=== PATIENT | female | born 1985 | race Caucasian/White ===

== ENCOUNTER 2024-03-01 19:00 | Emergency (ER) | payer OTHER, SELFPAY ==
[2024-03-01 19:00] VITALS: BMI 26.4
[2024-03-01 19:01] VITALS: BP 130/88
[2024-03-01 19:23] LABS: % Basophils 0.5 % (0-2); % Eosinophils 0.2 % (0-6); % Immature Granulocytes 0.3 % (0-0.5); % Lymphocytes 23.4 % (20.5-51.1); % Neutrophils 68.6 % (42.2-75.2); Absolute Lymphocytes 1.5 10^3/uL (1.2-3.4); Absolute Monocytes 0.5 10^3/uL (0.1-0.6); Absolute Neutrophils 4.4 10^3/uL (1.4-6.5); Hematocrit 38.1 % (37.0-47.0); Hemoglobin 12.9 g/dL (12.0-16.0); Mean Corp Hgb Conc. 33.9 g/dL (33.0-37.0); Mean Corpuscular Hgb 30.9 pg (27.0-31.0); Mean Corpuscular Volume 91.1 fL (81.0-99.0); Mean Platelet Volume 9.1 fL (7.4-10.4); Nucleated Red Blood Cells % 0 %; Platelet Count 184 10^3/uL (130-400); Red Blood Cell Count 4.18 10^6/uL (4.20-5.40); Red Cell Dist. Width 11.9 % (11.5-14.5); White Blood Cell Count 6.4 10^3/uL (4.8-10.8)
[2024-03-01 19:34] LABS: Lactic Acid 1.2 mmol/L (0.7-2.0)
[2024-03-01 19:46] LABS: ALT (SGPT) 18 U/L (0-35); AST (SGOT) 23 U/L (14-36); Alkaline Phosphatase 56 U/L (38-126); Blood Urea Nitrogen 8 mg/dl (7-17); Calcium 9.2 mg/dl (8.4-10.2); Carbon Dioxide 27 mmol/L (22-30); Chloride 98 mmol/L (98-107); Glucose 129 mg/dl (70-99); Potassium 3.7 mmol/L (3.5-5.1); Sodium 137 mmol/L (135-145); Total Bilirubin 0.6 mg/dl (0.2-1.3); Total Protein 7.3 g/dl (6.3-8.2); eGFR > 60.00
--- NOTE | 2024-03-01 19:50 | ED.GENMED ---
History of Present Illness
General
Chief Complaint: Fever
Source: patient
Exam Limitations: none
Time Seen by Provider: 03/01/24 19:30
Nursing documentation reviewed up to this point in time: agreed with
Travel History
Have you had any contact with someone who has COVID-19?: No
Do you have any symptoms of coronavirus? Fever > 100 degrees, chills, cough, shortness of breath, sore throat, loss of taste or smell, muscle aches, or headache?: No
History of Present Illness
History of Present Illness:
38-year-old female with no reported chronic medical issues presents to the emergency room for persistent fevers as well as redness of the right foot. Patient reports that she started feeling unwell Monday she says she has some aching back pain and
over the past 4 days has had fever with Tmax 102 �F. She says that she has been taking Tylenol every 6 hours to control this. She says that she had a bug bite last week and she noticed it was very itchy this week and that over the past day or 2 it
has become red and painful. She says she has also had associated headaches like a band around her head. She denies any nausea, vomiting, diarrhea. Denies any chest pain, shortness of breath. No cough, congestion, sore throat. Denies any
dysuria, hematuria, change in frequency. Denies any vaginal discharge. She says that she was seen in urgent care 2 days ago and was tested for flu and COVID and these were negative. Given the persistence of her symptoms she came to the emergency
room to be assessed.
Review of Systems
Review of Systems
All Other Systems: ROS reviewed and negative except as documented in HPI and ROS
Constitutional: Reports fever, fatigue and chills
EENT: Denies sore throat or runny nose
Respiratory: Denies cough or trouble breathing
Cardiac: Denies chest pain or palpitations
ABD/GI: Denies abdominal pain, nausea, vomiting or diarrhea
: Denies dysuria, frequency, flank pain, bleeding or discharge
Musculoskeletal: Reports muscle pain (Myalgias); Denies neck pain or back pain
Skin: Reports other (Redness dorsum right foot)
Neurological: Reports headache; Denies weakness or numbness
Phy Exam
Physical Exam
Physical Exam:
General: Awake, alert, oriented x3; no acute distress
Head: Normocephalic, atraumatic
Eyes: Conjunctiva normal, EOMI
Ears: TMs clear bilaterally
Throat: Airway intact, handling secretions, no tonsillar erythema or exudate
Neck: Trachea midline, supple without meningismus
Lungs: Clear to auscultation bilaterally, no wheezing, rales, rhonchi
Heart: Regular rate and rhythm, no murmurs, gallops, or rubs
Abd: Soft, non distended, nontender
Neuro: No gross deficits
Skin: Patient has area of erythema on the dorsum of the right foot approximately 3 cm diameter at the base of the third and fourth toe that extends towards the plantar surface
Extremities: Redness on the dorsum of the right foot as above; good strong pulses in all extremities and no edema
Scores
Heart Failure Risk
Heart Failure Risk Score: Not Applicable
Heart Score for Chest Pain Patients
STEMI patient?: Not applicable
Withdrawal Assessment of Alcohol
Withdrawal Assessment Completed?: Not applicable
Course
Orders/Labs/Results
Orders:
Orders
03/01/24 19:06
Electrocardiogram (*1) Urgent
Reason for Study: Other
Other Reason for Exam: Possible Sepsis
Cardiac Monitoring- Treatment ONCE
EKG- Treatment ONCE
IV Insert/Care/Rem.- Treatment PRN
O2 Therapy [RESP] Urgent
Titrate/Wean O2 to maintain O2 sat greater than (%): 93
Special Instructions: TO MAINTAIN CONTINUOUS O2 SATS > OR = 93%
Pulse Ox/cont/shift [RESP] Urgent
Quantity: 1
Special Instructions: CONTINUOUS
03/01/24 19:10
Complete Blood Count/With Diff Urgent
Comprehensive Metabolic Panel Urgent
Lactic Acid Q4H
Comment: ON ICE, CANCEL 2ND ORDER IF FIRST LACTIC ACID LEVEL <2
03/01/24 19:15
Blood Culture Q30M
SARAH Source: Blood/Venous
Specimen Description:
Comment: FROM 2 SEPARATE SITES
03/01/24 19:45
Blood Culture Q30M
SARAH Source: Blood/Venous
Specimen Description:
Comment: FROM 2 SEPARATE SITES
03/01/24 19:54
Test Result ONCE
03/01/24 20:06
HCG, Urine Qualitative Screen Urgent
Date Specimen was Collected: 03/01/24
Time Specimen was Collected: 20:02
Urinalysis Reflex To Culture Urgent
Date Specimen was Collected: 03/01/24
Time Specimen was Collected: 20:02
Urine Microscopic Reflex Cult Urgent
03/01/24 21:48
Cephalexin Monohydrate [Keflex] 500 mg PO NOW STA
03/01/24 23:15
Lactic Acid Q4H
Comment: ON ICE, CANCEL 2ND ORDER IF FIRST LACTIC ACID LEVEL <2
Abnormal Lab Results
03/01/24 03/01/24
19:10 20:06
RBC 4.18 L 10^6/uL
(4.20-5.40)
Creatinine 0.5 L mg/dL
(0.6-1.0)
Glucose 129 H mg/dl
(70-99)
Ur Occult Blood Reflex 4+ A
(Negative)
Urine RBC 7-10 A /HPF
(0-2)
Urine Bacteria (Reflex) Few A
(Negative)
03/01/24 19:10
03/01/24 19:10
Vital Signs
Initial and Last Documented VS:
Initial Vital Signs
Temp Pulse Resp BP Pulse Ox
36.8 C 96 18 130/88 98
03/01/24 19:01 03/01/24 19:01 03/01/24 19:01 03/01/24 19:01 03/01/24 19:01
Last Documented Vital Signs
Temp Pulse Resp BP Pulse Ox
36.8 C 93 17 129/83 99
03/01/24 19:01 03/01/24 20:30 03/01/24 20:30 03/01/24 20:11 03/01/24 20:30
MDM/Problems Addressed
Differential Diagnosis Includes:
Viral syndrome, cellulitis, UTI
MDM/Problems Addressed:
38-year-old female presents for evaluation of fever for the past few days associated with myalgias and progressive redness on the dorsum of the right foot. Tested for flu and COVID as an outpatient and these were negative. Vital signs normal here.
Exam as above. Will check basic labs, urinalysis. Reassess after the above�suspect that this is likely a viral syndrome although there are some signs concerning for an early cellulitis on the right foot which should be treated although I doubt
this is the source of her high fever for the past 5 days.
Labs reviewed: CBC unremarkable�no leukocytosis, normal differential. CMP no clinically significant abnormalities. Urinalysis negative for infection. Suspect likely viral syndrome as a cause for her primary complaint which is fever and myalgias
but the area of redness on the dorsum of the foot is concerning for a very mild case of early cellulitis. Will start on an antibiotic for this but I have low suspicion that this accounts for systemic symptoms. Spoke to the patient all results and
plan�I think he stable for discharge can follow-up with PCP. We spoke about return precautions and all questions answered.
*Pulse Oximetry
Patient hypoxic: no
*Critical Care Note
Total Time (30-74mins, 75-104mins- exclusive of procedures): Not Applicable
Data Reviewed
Source: patient and family (Sister)
ED Attending Note
-
Portions of this chart may have been created with voice recognition software.� Occasional wrong word or��sound alike� substitutions may have occurred due to the inherent limitations of voice recognition software.
Discharge Plan
Departure
Patient Disposition: Home (Routine Discharge)
Date of Disposition: 03/01/24
Time of Disposition: 21:52
Patient with high blood pressure during this ER visit?: No
Discharge Problem:
Fever, Cellulitis
Instructions: Fever, Adult (DC), Viral Syndrome (DC), Cellulitis (Skin Infection), Adult ED
Prescriptions:
New
cephalexin 500 mg capsule
500 mg PO TID 7 Days Qty: 21 0RF
Activity Restrictions/Additional Instructions:
Thank you for visiting the Emergency Department at [facility].
1. Please schedule a follow up appointment as directed. Call first thing tomorrow morning to make an appointment.
2. If indicated, please take your medications as instructed and indicated on discharge paperwork.
3. If any of your symptoms do not improve, or persist, or become more severe within 6-12 hours, please return to the emergency department for further care.
4. Please return to the emergency department if you develop a headache, neck pain/stiffness, fever greater than 100.4F, chest pain, shortness of breath, persistent nausea, vomiting, slurred speech, difficulty walking, numbness/tingling, weakness,
signs of infection or any other symptoms that are worrisome to you.
Please call [phone] if you have any questions.
Interventions
Interventions:
*General Assessment Last Done: 03/01/24 19:01
*Neglect/Abuse Screening Last Done: 03/01/24 19:01
ED- Fall Risk Assessment Last Done: 03/01/24 19:01
*ED COVID-19 Vaccine History Last Done: 03/01/24 19:01
ED- Neurological Assessment Last Done: 03/01/24 20:17
ED-Skin Assessment Last Done: 03/01/24 20:17
Discharge Date and Time
Print Language: HEBREW
[2024-03-01 20:11] VITALS: BP 129/83
[2024-03-01 20:34] LABS: Urine Albumin Trace (Neg - Trace); Urine Bilirubin Negative (Negative); Urine Character Clear (Clear); Urine Color Yellow; Urine Glucose Negative (Negative); Urine Ketone Negative (Negative); Urine Leukocyte Negative (Negative); Urine Nitrite Negative (Negative); Urine Occult Blood 4+ (Negative); Urine Specific Gravity 1.015 (<1.030); Urine Urobilinogen Negative (Neg - 1+)
[2024-03-01 20:52] LABS: Urine Squamous Cell >30 /LPF (Few)
[2024-03-01 20:56] LABS: Urine Bacteria Few (Negative)
[2024-03-01 21:00] VITALS: BP 127/83
[2024-03-01] MEDS: KEFLEX 500 MG PO (21:57)
[2024-03-01 22:07] LABS: HCG, Urine Qualitative Screen Negative
== END 2024-03-01 22:10 | disposition home or self-care (01) ==
LOC: EMR 19:00
PROVIDERS: Emergency Medicine; EMERGENCY PHYSICIAN Emergency Medicine
DX: R50.9 Fever, unspecified (principal); L03.115 Cellulitis of right lower limb; R51.9 Headache, unspecified; M79.10 Myalgia, unspecified site; M54.9 Dorsalgia, unspecified
CPT/HCPCS: 99283; 80053; 81003; 81015; 81025; 83605; 85025; 87040; 93005